=== PATIENT | male | born 1970 | race Caucasian/White ===

== ENCOUNTER 2024-09-11 00:48 | Emergency (ER) | payer MEDICARE, SELFPAY ==
--- NOTE | 2024-09-11 00:49 | ED.GENMED ---
History of Present Illness
General
Source: patient
Exam Limitations: none
Time Seen by Provider: 09/11/24 00:49
History of Present Illness
History of Present Illness:
See MDM
Past History
Past History
ED Past Medical History: Other
ED Past Surgical History: Other
Social History
Tobacco: Other
Alcohol: Daily
Drug: Other
Personal: Other
Living: homeless
Family History
Family History: Unable to obtain
Phy Exam
Physical Exam
Physical Exam:
See MDM
Course
Orders/Labs/Results
Orders:
Orders
09/11/24 00:51
Crisis Consult Urgent
Reason for Consult: suicidal
Complete Blood Count/With Diff Urgent
Comprehensive Metabolic Panel Urgent
Acetaminophen with Codeine [Tylenol #3] 1 tablet PO NOW STA
Divalproex Delayed Rel. 12 Hr [Depakote (12 Hr Release)] 1,000 mg PO NOW STA
Lorazepam [Ativan] 1 mg PO NOW STA
MDM/Problems Addressed
Differential Diagnosis Includes:
HPI and MDM Narrative:
54 year old M presenting by EMS for SI.� Pt acknowledges he is homeless and wants somewhere to sleep.� He then states he is noncompliant with his Depakote and wants to stab himself.� Pt is seeking inpt psych.� He complains of b/l foot pain due to
wearing shoes that are too small.�
Physical exam
General: Discheveled
HEENT: protecting airway
Neck: appears supple
CV: No evidence of cyanosis
Resp: No accessory muscle use
Abd: Non-distended
Extremities: mild bruising to lateral aspects of both feet.� Both feet are neurovascularly intact
Neuro: alert
Psych: pressured speech
Skin: Intact
Problems Addressed including Acute and Chronic Conditions affecting care:
1.� Suicidal thoughts
Acuity:� acute
Prognosis: stable
Details: will have crisis eval.� Will give dose of his Depakote and will write for Ativan.� Pt on 1:1
2.� Foot pain
Acuity:� acute
Prognosis: stable
Details: Due to wearing shoes too small.� Pt requesting tylenol #3
Updates
Differential Diagnosis (but not limited to): Psychosis, medication noncompliance
Testing considered: UDS
Drug therapy (if applicable): OTC meds, please see d/c instruction regarding Rx drugs
�����
Amount and/or Complexity of Data Reviewed
Clinical info obtained from: Patient
External data reviewed: N/A
Labs I independently reviewed (but not limited to):� [� ]
���������
Radiology:� N/A
Pulse Ox: not hypoxic
EKG independently reviewed: N/A
Auto Technician Mechanic:� N/A
Critical Care:� N/A
Risk of Complication:
Social Determinants of health:�Poor social support
Discussed with other providers:� N/A
Escalation of Care includes Admit/Obs: Will have crisis evaluate for possible bed search
Occasional wrong word or 'sound a like' substitutions may have occurred due to the inherent limitations of voice recognition software.� Read the chart carefully and recognize, using context, where substitutions have occurred.
ED Attending Note
-
Portions of this chart may have been created with voice recognition software.� Occasional wrong word or��sound alike� substitutions may have occurred due to the inherent limitations of voice recognition software.
Discharge Plan
Departure
Patient Disposition: Other
Date of Disposition: 09/11/24
Time of Disposition: 00:50
Discharge Problem:
Suicidal ideation
Discharge Date and Time
Print Language: ALGERIAN
[2024-09-11 00:52] VITALS: BP 128/81
[2024-09-11] MEDS: DEPAKOTE (12 HR RELEASE) 1000 MG PO (01:01)
[2024-09-11] MEDS: TYLENOL #3 1 TABLET PO (01:02)
[2024-09-11] MEDS: ATIVAN 1 MG PO (01:02)
[2024-09-11 01:55] LABS: % Basophils 0.7 % (0-2); % Eosinophils 3.3 % (0-6); % Immature Granulocytes 0.1 % (0-0.5); % Lymphocytes 32.4 % (20.5-51.1); % Monocytes 9.7 % (1.7-9.3); % Neutrophils 53.8 % (42.2-75.2); Absolute Basophils 0.1 10^3/uL (0-0.2); Absolute Eosinophils 0.2 10^3/uL (0-0.7); Absolute Lymphocytes 2.4 10^3/uL (1.2-3.4); Absolute Monocytes 0.7 10^3/uL (0.1-0.6); Absolute Neutrophils 3.9 10^3/uL (1.4-6.5); Hematocrit 33.2 % (39.0-52.0); Hemoglobin 11.5 g/dL (13.0-18.0); Mean Corp Hgb Conc. 34.6 g/dL (33.0-37.0); Mean Corpuscular Hgb 30.7 pg (27.0-31.0); Mean Corpuscular Volume 88.8 fL (80.0-94.0); Mean Platelet Volume 11.3 fL (7.4-10.4); Nucleated Red Blood Cells % 0 % (-); Platelet Count 280 10^3/uL (130-400); Red Blood Cell Count 3.74 10^6/uL (4.70-6.10); Red Cell Dist. Width 14.7 % (11.5-14.5); White Blood Cell Count 7.3 10^3/uL (4.8-10.8)
[2024-09-11 02:08] LABS: ALT (SGPT) 32 U/L (0-50); AST (SGOT) 25 U/L (17-59); Alkaline Phosphatase 60 U/L (38-126); Blood Urea Nitrogen 19 mg/dl (9-20); Calcium 8.9 mg/dl (8.4-10.2); Carbon Dioxide 28 mmol/L (22-30); Chloride 102 mmol/L (98-107); Glucose 91 mg/dl (70-99); Potassium 3.9 mmol/L (3.5-5.1); Sodium 138 mmol/L (135-145); Total Bilirubin 0.1 mg/dl (0.2-1.3); Total Protein 6.5 g/dl (6.3-8.2); eGFR > 60.00
--- NOTE | 2024-09-11 02:13 | DOWNTIME ---
There was a [employer] Client Data Processing Auditor Downtime on 09/11/2024 from 0100 to 09/11/2024 at 0205 . Downtime documentation of patient's care, including medication administrations, has been reconciled in the electronic record per guidelines. Refer to the
patient's paper chart under the miscellaneous tab to see printed paper medication records and downtime forms.
[2024-09-11 07:43] VITALS: BP 123/75
== END 2024-09-11 10:29 | disposition other institution (70) ==
LOC: EMR 00:48
PROVIDERS: EMERGENCY PHYSICIAN Student in an Organized Health Care Education/Training Program
DX: R45.851 Suicidal ideations (principal); Z59.00 Homelessness unspecified
CPT/HCPCS: 99283; 80053; 85025

== ENCOUNTER 2024-11-08 01:20 | Emergency (ER) | payer MEDICARE, SELFPAY ==
[2024-11-08 01:24] VITALS: BP 147/88
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
== END 2024-11-08 02:02 | disposition home or self-care (01) ==
LOC: EMR 01:20
PROVIDERS: EMERGENCY PHYSICIAN Student in an Organized Health Care Education/Training Program
DX: Z76.89 Persons encountering health services in other specified circumstances (principal); F10.10 Alcohol abuse, uncomplicated; F25.0 Schizoaffective disorder, bipolar type; Z59.00 Homelessness unspecified
CPT/HCPCS: 99282